=== PATIENT | female | born 1945 | race Caucasian/White ===

== ENCOUNTER → 2016-11-19 | Outpatient (CLI) | payer OTHER ==
[~2016-11-19] MED LIST: ADVAIR 250/501 DISK IH; ADVIL200 MG PO; ASPIRIN LOW DOS81 M1 PO; AUGMENTIN875 MG PO; CALCIUM600 MG PO; CELEBREX200 MG PO; CELEXA20 MG PO; CELEXA40 MG PO; CLONAZEPAM0.5 MG PO; CLORAZEPATE DIP15 MG PO; DIAZEPAM10 MG PO; DIAZEPAM5 MG PO; DITROPAN XL10 MG PO; DOMP10T PO; DOXYCYCLINE HY100 M3 PO; DUONEB 2.5-0.5 M3 ML AEROSOL; FUROSEMIDE40 MG PO; HYDROCHLOROTHIA25 MG PO; IRON PO; IRON325 M1 PO; K-DUR20 MEQ PO; LEVOFLOXACIN750 MG PO; LO-DOSE ASPIRIN81 M1 PO; METHOCARBAMOL500 MG PO; MIRTAZAPINE15 MG PO; MISOPROSTOL200 MCG PO; MUCINEX DM ER1 EACH PO; MULTIVITAMIN1 EAC1 PO; NORVASC5 MG PO; OMEPRAZOLE40 M1 PO; OXYBUTYNIN CHLOR5 MG PO; PREDNISONE20 MG PO; PREDNISONE5 MG PO; PRILOSEC20 MG PO; PROVENTIL HFA6.7 GM IH; PROVENTIL,2.5 MG/3 M IH; RANITIDINE HCL300 M1 PO; RAYOS5 MG PO; ROXICODONE5 MG PO; SENNA8.6 M1 PO; SYNTHROID112 MCG PO; SYNTHROID88 MCG PO; TAMOXIFEN CITRA20 MG PO; TYLENOL REGULA325 MG PO; VESICARE5 MG PO; ZYPREXA20 MG PO
== END | disposition home or self-care (01) ==
LOC: RAD 11-13 11:00
DX: J98.4 Other disorders of lung (principal); R04.2 Hemoptysis; Z92.21 Personal history of antineoplastic chemotherapy; Z92.3 Personal history of irradiation
CPT/HCPCS: 71260

== ENCOUNTER 2017-03-04 08:54 | Day surgery (SDC) | payer OTHER ==
[~2017-03-04] VITALS: Ht 142.2 cm; Wt 42.6 kg
[~2017-03-04 08:54] MED LIST changes: +BACTRIM,SEPT1 TABLE1 PO; +KLONOPIN0.5 M1 PO; +PERCOCET 5/31 TABLET PO; +ROBAXIN500 MG PO; +SYNTHROID100 MCG PO; +VALIUM5 MG PO
== END 2017-03-04 09:24 | disposition home or self-care (01) ==
LOC: PAIN 08:54 → SDC 09:30
DX: M47.812 Spondylosis without myelopathy or radiculopathy, cervical region (principal); M19.011 Primary osteoarthritis, right shoulder; Z53.09 Procedure and treatment not carried out because of other contraindication
CPT/HCPCS: J2250; J3010

== ENCOUNTER 2017-05-05 12:17 | Day surgery (SDC) | payer OTHER ==
[~2017-05-05] VITALS: Ht 139.7 cm; Wt 42.6 kg
== END 2017-05-05 14:45 | disposition home or self-care (01) ==
LOC: PAIN 12:17 → SDC 13:00 → PAIN 14:45
PROC: 3E0S33Z Introduction of Anti-inflammatory into Epidural Space, Percutaneous Approach (ICD-10-PCS; principal; 2017-05-05)
DX: M54.14 Radiculopathy, thoracic region (principal); M47.22 Other spondylosis with radiculopathy, cervical region; F41.9 Anxiety disorder, unspecified; M19.011 Primary osteoarthritis, right shoulder; K59.00 Constipation, unspecified; Z87.891 Personal history of nicotine dependence; J44.9 Chronic obstructive pulmonary disease, unspecified; Z85.3 Personal history of malignant neoplasm of breast; Z85.118 Personal history of other malignant neoplasm of bronchus and lung; K21.9 Gastro-esophageal reflux disease without esophagitis; I10 Essential (primary) hypertension; E03.9 Hypothyroidism, unspecified; G25.0 Essential tremor; F31.9 Bipolar disorder, unspecified; H54.41 Blindness, right eye, normal vision left eye; H35.30 Unspecified macular degeneration; Z88.8 Allergy status to other drugs, medicaments and biological substances
CPT/HCPCS: J1030; J1885; J3010; S0020